=== PATIENT | female | born 1990 | race Caucasian/White ===

== ENCOUNTER → 2016-07-05 | Outpatient (CLI) | payer BC ==
[~2016-07-05] MED LIST: FERR325T3 PO; IBUP80TA PO; PERCOCET PO; PRENTAB13 PO
--- NOTE | 2016-07-05 14:20 | REP ---
Clinical: Anatomical evaluation. Comparison: 05/10/2016 . Findings: Examination demonstrates a single live intrauterine in breech presentation. motion is identified by technologist. Placenta is noted posteriorly and grade zero without evidence for placenta previa or abruption. Amniotic fluid volume is normal. Cervix measures 3.5 cm in length and appears closed. No evidence for nuchal cord. Gestational age by LMP 27 weeks 5 days with LISA 09/29/2016 . Gestational age by current measurements 28 weeks 2 days with LISA 09/25/2016 . FHR equals 147 beats per minute. Estimated weight 1329 grams (77th percentile). Amniotic fluid index equals 13.4 cm (9.4 - 22.7). Anatomical assessment demonstrates normal structures including cranium, facial features, four-chamber heart/ventricular outflow tracts, stomach, kidneys/bladder, and extremities. Impression: Single live intrauterine in cephalic presentation demonstrating appropriate interval growth. In conjunction with prior examination anatomical assessment is complete and normal.
== END ==
LOC: M WHC 12:44
PROVIDERS: ATTEND Advanced Practice Midwife
DX: O34.211 Maternal care for low transverse scar from previous cesarean delivery (principal)

== ENCOUNTER → 2016-08-31 | Outpatient (REF) | payer BC, MEDICAID | LOC: M LAB REF 13:17 | PROVIDERS: ATTEND Advanced Practice Midwife | DX: Z36 Encounter for antenatal screening of mother (principal) ==

== ENCOUNTER 2016-09-21 07:30 | Inpatient (IN) | payer BC ==
[~2016-09-21] VITALS: Ht 154.9 cm; Wt 234.0 kg
[2016-09-28] MEDS ORDERED: LR 1,000 ML IV ONE (06:45)
[2016-09-28] MEDS ORDERED: BICITRA 30ML SOLN UDC PO ONE (06:45)
[2016-09-28] MEDS ORDERED: LR 1,000 ML IV SCH ×2 (07:00→14:00)
[2016-09-28 07:16] LABS: MEAN CORPUSCULAR HEMOGLOBIN 30.2 pg (27.0-33.0); MEAN CORPUSCULAR HGB CONC 33.8 g/dl (32.0-36.5); MEAN CORPUSCULAR VOLUME 89.5 fl (80.0-96.0); RED CELL DISTRIBUTION WIDTH 14.1 % (11.5-14.5); WHITE BLOOD COUNT 16.4 K/mm3 (4.0-10.0)
[2016-09-28] MEDS: PRENATAL VITAMIN TAB PO SCH (09:00)
[2016-09-28] MEDS ORDERED: MORPHINE PRES-FREE INJ 10 MG/10 ML VIAL (J2274) As Ordered ONE (11:27)
[2016-09-28] MEDS ORDERED: OXYTOCIN INJ 10 UNITS/ML VIAL (J2590) As Ordered ONE (11:28)
[2016-09-28] MEDS ORDERED: IBUP800T23 PO (11:55)
[2016-09-28] MEDS ORDERED: PERCOCET PO (11:56)
[2016-09-28] MEDS ORDERED: SUCCINYLCHOLINE 100 MG/5 ML SYRINGE (J0330) As Ordered ONE (12:50)
[2016-09-28] MEDS ORDERED: LIDOCAINE 2% INJ 100 MG/5 ML SDV (FOR ANES.) As Ordered ONE (12:50)
[2016-09-28] MEDS ORDERED: PROPOFOL 200 MG/20 ML VIAL As Ordered ONE (12:50)
[2016-09-28] MEDS ORDERED: KETOROLAC 60 MG/2 ML VIAL (J1885) As Ordered ONE (12:57)
[2016-09-28] MEDS ORDERED: fentaNYL 100 MCG/2 ML INJECTION (J3010) As Ordered ONE (13:10)
[2016-09-28] MEDS: LR 1,000 ML IV SCH ×2 (13:16→21:16)
[2016-09-28] MEDS ORDERED: NS 1,000 ML IV SCH (13:16)
[2016-09-28] MEDS ORDERED: PERCOCET 5MG/325MG TAB PO PRN ×2 (13:30→14:00)
[2016-09-28] MEDS ORDERED: RHOGAM 300 MCG (1500 IU) INJ (J2790) IM SCH (13:30)
[2016-09-28] MEDS ORDERED: NALOXONE INJ 0.4 MG/1 ML VIAL (J2310) IV PRN (13:30)
[2016-09-28] MEDS ORDERED: MEASLES,MUMPS,RUBELLA VACCINE INJ (MMR-II) (90707) SC SCH (13:30)
[2016-09-28] MEDS ORDERED: MORPHINE PCA 1MG/ML 100ML CADD IV PRN (13:30)
[2016-09-28] MEDS ORDERED: NALBUPHINE HCL 10 MG/ML AMP (J2300) IV PRN (13:30)
[2016-09-28] MEDS ORDERED: EPIDURAL/PCA KEYS XX PRN (13:30)
[2016-09-28] MEDS ORDERED: ONDANSETRON 4MG/2ML VIAL (J2405) IV PRN ×2 (13:30→14:00)
[2016-09-28] MEDS ORDERED: diphenhydrAMINE INJ 50MG/ML VIAL (J1200) IV PRN (13:30)
[2016-09-28] MEDS ORDERED: MOM 30ML SUSPENSION UDC PO PRN (13:30)
[2016-09-28] MEDS ORDERED: MORPHINE PCA 1MG/ML 100ML CADD As Ordered ONE (13:42)
[2016-09-28] MEDS: OXYTOCIN DRIP 30 UNITS in APPROPRIATE DILUENT 1 EA IV SCH ×14 (13:47→19:59)
--- NOTE | 2016-09-28 13:48 | RO ---
DATE OF PROCEDURE: 09/28/2016 PREPROCEDURE DIAGNOSIS: Intrauterine at 39 plus weeks with history of a prior section. POSTPROCEDURE DIAGNOSIS: Intrauterine at 39 plus weeks with history of a prior section. PROCEDURE: Repeat section. SURGEON: Dr. Jessica Mares WEIGHT CALCULATOR: Chen Tripathi CNM ANESTHESIA: General secondary to inadequate spinal. ESTIMATED BLOOD LOSS: 600 mL. INTRAVENOUS FLUIDS: 1400 mL of lactated ringer solution. URINE OUTPUT: 100 mL. PREOPERATIVE ANTIBIOTICS: 2 grams of Ancef. OPERATIVE FINDINGS: Live born female infant, scores 9 and 9. SPECIMENS: Cord blood. DESCRIPTION OF PROCEDURE: After informed consent was obtained and written content was reviewed, the patient was brought to the operating room where an attempt for spinal anesthesia was initiated. Unable to obtain an adequate spinal anesthesia, decision was made to proceed with general endotracheal anesthesia. The patient was prepped and draped in a normal sterile fashion. A Jenkins catheter was placed and set to gravity. A time out in the operating room was then performed, identifying patient and procedure to be performed, as well as drug allergies. The patient was then intubated. A Pfannenstiel skin incision was then made along the previous skin incision and carried down to the underlying rectus fascia. The fascia was scored and this incision was extended bilaterally. The fascia was then dissected off the underlying rectus muscles both superiorly and inferiorly. The rectus muscles were then in the midline. The peritoneum was then entered sharply. The vesicouterine peritoneum was identified. It was tented and excised to create a bladder flap. A bladder blade was placed to retract back the bladder. A curvilinear incision was made in the lower uterine segment. Amniotomy was then performed productive of clear fluid. The head was brought to the level of the incision and was delivered with the aid of a Kiwi vacuum atraumatically, followed by delivery of the shoulders and corpus. The cord was clamped times two and was cut. The infant was taken over to the warmer with a good cry. The placenta was then delivered grossly intact. The uterus was then exteriorized and cleared of all clots and debris. The uterine incision was then closed in two layers using #0 Vicryl for the first layer in a running locking fashion, followed by a second layer for imbrication in a running nonlocking fashion. The abdomen was then suctioned. The uterus was returned to the patient's abdomen. It was reinspected and noted to be hemostatic. The anterior peritoneum along with the rectus muscles were then closed with #3-0 Vicryl. The fascia was then closed using #0 Vicryl in a running nonlocking fashion. The subcutaneous tissue was then irrigated and suctioned. The subcutaneous tissue was then reapproximated with #3-0 Vicryl. Several subdermal stitches were placed with #3-0 Vicryl. The skin was closed with #4-0 Monocryl in a subcuticular fashion. The incision was then cleaned and dried. Mastisol was applied above and below the incision. Steri-Strips were applied over the incision. The incision was then dressed. The patient was then awakened from general anesthesia and was taken to recovery in stable condition.
[2016-09-28] MEDS ORDERED: MORPHINE 10 MG/ML 1ML VIAL As Ordered ONE (13:51)
[2016-09-28] MEDS: MORPHINE 2 MG/ML 1ML SYRINGE IV PRN ×4 (13:54→14:35)
[2016-09-28] MEDS ORDERED: fentaNYL 100 MCG/2 ML INJECTION (J3010) IV PRN (14:00)
[2016-09-28] MEDS ORDERED: METOCLOPRAMIDE INJ 10MG/2ML VIAL (J2765) IV PRN (14:00)
[2016-09-28] MEDS ORDERED: OXYTOCIN 30 UNITS IN 0.9% NaCl 500ML IV BAG (J2590) As Ordered ONE (14:24)
[2016-09-28 15:00] VITALS: BP 131/68
[2016-09-28 15:30] VITALS: BP 132/71
[2016-09-28 16:30] VITALS: BP 126/56
[2016-09-28 17:30] VITALS: BP 139/63
[2016-09-28] MEDS: KETOROLAC 30 MG/ML VIAL (J1885) IV SCH (19:47)
[2016-09-28 22:31] VITALS: BP 131/59
[2016-09-29] MEDS: KETOROLAC 30 MG/ML VIAL (J1885) IV SCH ×3 (01:35→12:54)
[2016-09-29 02:00] VITALS: BP 118/60
[2016-09-29] MEDS: LR 1,000 ML IV SCH ×3 (06:10→21:16)
[2016-09-29 06:21] VITALS: BP 127/58
[2016-09-29 07:01] LABS: MEAN CORPUSCULAR HEMOGLOBIN 29.8 pg (27.0-33.0); MEAN CORPUSCULAR HGB CONC 32.5 g/dl (32.0-36.5); MEAN CORPUSCULAR VOLUME 91.7 fl (80.0-96.0); RED CELL DISTRIBUTION WIDTH 14.3 % (11.5-14.5); WHITE BLOOD COUNT 14.4 K/mm3 (4.0-10.0)
[2016-09-29 09:57] VITALS: BP 112/56
[2016-09-29] MEDS: PRENATAL VITAMIN TAB PO SCH (11:09)
[2016-09-29 14:00] VITALS: BP 137/82
[2016-09-29] MEDS: PERCOCET 5MG/325MG TAB PO PRN ×2 (15:57→21:49)
[2016-09-29 17:39] VITALS: BP 124/56
[2016-09-29] MEDS: IBUPROFEN 800 MG TAB PO SCH (21:50)
[2016-09-29 22:00] VITALS: BP 118/56
[2016-09-30] MEDS: PERCOCET 5MG/325MG TAB PO PRN (04:35)
[2016-09-30] MEDS: IBUPROFEN 800 MG TAB PO SCH (05:12)
[2016-09-30 06:42] VITALS: BP 112/51
[2016-09-30] MEDS: PRENATAL VITAMIN TAB PO SCH (08:08)
--- NOTE | 2016-09-30 08:35 | DSES ---
DATE OF ADMISSION: 09/28/2016 DATE OF DISCHARGE: DISCHARGE DIAGNOSIS: Repeat section. DISCHARGE CONDITION: Stable. PROCEDURES PERFORMED WHILE IN THE HOSPITAL: 1. General anesthesia. 2. section. HOSPITAL COURSE: Ms. Love presented for scheduled section secondary to history of prior section. Her section was uncomplicated. Estimated blood loss was 600 mL. Delivery was productive of a live born female infant. were 9 and 9. She did well postoperative. By postoperative day #2, had met all discharge criteria and was discharged home in stable condition. PHYSICAL EXAMINATION: On date of discharge, her vital signs are stable. She is afebrile. General appearance: Well appearing, no acute distress. Abdomen: Soft, appropriately tender. Fundus below umbilicus. Her incision was clean, dry, intact, well approximated with Steri-Strips, non-erythremic. Extremities: Negative for calf tenderness. DISCHARGE MEDICATIONS: - ibuprofen - Percocet DISCHARGE INSTRUCTIONS: 1. She was instructed to followup in 2 weeks for incision check. 2. Remain on pelvic rest. 3. Report severe pain, heavy vaginal bleeding, fever, incision issues or breast feeding issues. GRAY
== END 2016-09-30 11:01 | disposition home or self-care (01) | DRG 540 ==
LOC: M LDI 09-28 06:24 → M OBS 09-28 15:05
PROVIDERS: ADMIT Specialist; ATTEND Obstetrics & Gynecology
PROC: 10D00Z1 Extraction of Products of Conception, Low, Open Approach (ICD-10-PCS; principal; 2016-09-28 07:30)
DX: O34.211 Maternal care for low transverse scar from previous cesarean delivery (principal); Z37.0 Single live birth; Z3A.39 39 weeks gestation of pregnancy

== ENCOUNTER → 2017-10-13 | Outpatient (REF) | payer BC, OTHER ==
[2017-10-13 17:01] LABS: BASO # 0.1 10^3/uL (0.0-0.2); BASO % 0.6 % (0.0-1.0); EOS # 0.2 10^3/uL (0.0-0.50); HEMATOCRIT 41.4 % (36.0-47.0); HEMOGLOBIN 12.9 g/dl (12.0-15.5); IMMATURE GRANULOCYTE % 0.3 % (0-3.0); LYMPH % 28.2 % (24.0-44.0); MEAN CORPUSCULAR HEMOGLOBIN 28.5 pg (27.0-33.0); MEAN CORPUSCULAR HGB CONC 31.2 g/dl (32.0-36.5); MEAN CORPUSCULAR VOLUME 91.6 fl (80.0-96.0); MONO # 0.7 10^3/uL (0.0-0.8); MONO % 6.7 % (0.0-5.0); NEUTROPHILS # 6.7 10^3/uL (1.8-7.7); NEUTROPHILS % 62.2 % (36.0-66.0); PLATELET COUNT, AUTOMATED 330 10^3/uL (150-450); RED BLOOD COUNT 4.52 10^6/uL (4.00-5.40); RED CELL DISTRIBUTION WIDTH 13.5 % (11.5-14.5); WHITE BLOOD COUNT 10.7 10^3/uL (4.0-10.0)
[2017-10-13 17:14] LABS: ALBUMIN 3.8 GM/DL (3.2-5.2); ALBUMIN/GLOBULIN RATIO 1.12 (1.00-1.93); ALKALINE PHOSPHATASE 128 U/L (45-117); ALT/SGPT 30 U/L (12-78); ANION GAP 6 MEQ/L (8-16); AST/SGOT 22 U/L (7-37); BILIRUBIN,TOTAL 0.4 MG/DL (0.2-1.0); BLOOD UREA NITROGEN 9 MG/DL (7-18); CALCIUM LEVEL 8.4 MG/DL (8.5-10.1); CARBON DIOXIDE LEVEL 27 MEQ/L (21-32); CHLORIDE LEVEL 110 MEQ/L (98-107); CHOLESTEROL LEVEL 135 MG/DL (<200); CHOLESTEROL RISK RATIO 3.214 (<5); CREATININE FOR GFR 0.74 MG/DL (0.55-1.30); FREE T4 1.03 NG/DL (0.76-1.46); GLOMERULAR FILTRATION RATE > 60.0 (>60); GLUCOSE, FASTING 82 MG/DL (70-100); HDL CHOLESTEROL 42 MG/DL (>40); LDL CHOLESTEROL 75.6 MG/DL (<100); NON-HDL-C 93 MG/DL; POTASSIUM SERUM 4.3 MEQ/L (3.5-5.1); SODIUM LEVEL 143 MEQ/L (136-145); TOTAL PROTEIN 7.2 GM/DL (6.4-8.2); TRIGLYCERIDES LEVEL 87 MG/DL (<150)
[2017-10-15 11:16] LABS: TOTAL 25(OH) VITAMIN D 11.8 NG/ML (30.0-100.0)
== END ==
LOC: M SFHCSACK 08:56
DX: M79.7 Fibromyalgia (principal); Z13.220 Encounter for screening for lipoid disorders; Z13.29 Encounter for screening for other suspected endocrine disorder; Z13.21 Encounter for screening for nutritional disorder
CPT/HCPCS: 84443

== ENCOUNTER → 2017-12-15 | Outpatient (CLI) | payer BC, OTHER ==
[2017-12-15 17:18] LABS: GAMMA GLUTAMYLTRANSPEPTIDASE 30 U/L (5-55)
== END ==
LOC: M LABDRWAD 10:33
DX: K58.1 Irritable bowel syndrome with constipation (principal)

== ENCOUNTER → 2018-02-14 | Outpatient (CLI) | payer BC, OTHER | LOC: M ADAMS 15:58 | DX: M25.571 Pain in right ankle and joints of right foot (principal) | CPT/HCPCS: 73610 ==

== ENCOUNTER → 2018-03-16 | Outpatient (CLI) | payer BC, OTHER ==
[2018-03-16 14:00] LABS: ALBUMIN 3.6 GM/DL (3.2-5.2); ALBUMIN/GLOBULIN RATIO 1.06 (1.00-1.93); ALKALINE PHOSPHATASE 119 U/L (45-117); ALT/SGPT 32 U/L (12-78); ANION GAP 6 MEQ/L (8-16); AST/SGOT 22 U/L (7-37); BILIRUBIN,TOTAL 0.4 MG/DL (0.2-1.0); BLOOD UREA NITROGEN 11 MG/DL (7-18); CALCIUM LEVEL 8.4 MG/DL (8.5-10.1); CARBON DIOXIDE LEVEL 26 MEQ/L (21-32); CHLORIDE LEVEL 111 MEQ/L (98-107); GLOMERULAR FILTRATION RATE > 60.0 (>60); GLUCOSE, FASTING 80 MG/DL (70-100); POTASSIUM SERUM 3.9 MEQ/L (3.5-5.1); SODIUM LEVEL 143 MEQ/L (136-145)
[2018-03-16 14:06] LABS: BASO # 0.1 10^3/uL (0.0-0.2); BASO % 0.6 % (0.0-1.0); EOS # 0.4 10^3/uL (0.0-0.50); EOS % 3.6 % (0.0-3.0); HEMATOCRIT 40.1 % (36.0-47.0); HEMOGLOBIN 12.7 g/dl (12.0-15.5); IMMATURE GRANULOCYTE % 0.5 % (0-3.0); LYMPH # 3.5 10^3/uL (1.5-6.5); LYMPH % 31.7 % (24.0-44.0); MEAN CORPUSCULAR HEMOGLOBIN 28.5 pg (27.0-33.0); MEAN CORPUSCULAR HGB CONC 31.7 g/dl (32.0-36.5); MEAN CORPUSCULAR VOLUME 89.9 fl (80.0-96.0); MONO # 0.9 10^3/uL (0.0-0.8); MONO % 8.3 % (0.0-5.0); NEUTROPHILS # 6.1 10^3/uL (1.8-7.7); NEUTROPHILS % 55.3 % (36.0-66.0); PLATELET COUNT, AUTOMATED 324 10^3/uL (150-450); RED BLOOD COUNT 4.46 10^6/uL (4.00-5.40); RED CELL DISTRIBUTION WIDTH 12.8 % (11.5-14.5); WHITE BLOOD COUNT 10.9 10^3/uL (4.0-10.0)
[2018-03-18 11:02] LABS: TOTAL 25(OH) VITAMIN D 58.1 NG/ML (30.0-100.0)
== END ==
LOC: M ADAMS 09:51
DX: M35.9 Systemic involvement of connective tissue, unspecified (principal); R74.8 Abnormal levels of other serum enzymes; E55.9 Vitamin D deficiency, unspecified
CPT/HCPCS: 80053

== ENCOUNTER → 2018-03-22 | Outpatient (CLI) | payer BC ==
[~2018-03-22] MED LIST changes: -FERR325T3 PO; -IBUP80TA PO; -PERCOCET PO; -PRENTAB13 PO; +PROHANCE 279.3MG/ML 15ML VIAL (A9576) As Ordered; +PROHANCE 279.3MG/ML 5ML VIAL (A9576) As Ordered
== END ==
LOC: M RAD 11:57
DX: R22.41 Localized swelling, mass and lump, right lower limb (principal)

== ENCOUNTER → 2018-05-27 | Outpatient (REF) | payer BC ==
[2018-05-27 16:13] LABS: APPEARANCE, URINE HAZY (CLEAR); BACTERIA, URINE AUTO NEGATIVE (NEGATIVE); BILIRUBIN, URINE AUTO NEGATIVE (NEGATIVE); BLOOD, URINE BLOOD NEGATIVE (NEGATIVE); CALCIUM OXALATE CRYSTALS SMALL; COLOR, URINE YELLOW (YELLOW); GLUCOSE, URINE (UA) AUTO NEGATIVE (NEGATIVE); KETONE, URINE AUTO NEGATIVE (NEGATIVE); LEUKOCYTE ESTERASE, URINE AUTO NEGATIVE (NEGATIVE); MUCUS, URINE SMALL (NEGATIVE); NITRITE, URINE AUTO NEGATIVE (NEGATIVE); PROTEIN, URINE AUTO NEGATIVE (NEGATIVE); RBC, URINE AUTO 4 /HPF (0-3); SPECIFIC GRAVITY URINE AUTO 1.026 (1.002-1.035); SQUAMOUS EPITHELIAL CELL UR AU 5 /HPF (0-6); WBC, URINE AUTO 1 /HPF (0-3)
[2018-05-27 16:14] LABS: BASO # 0.1 10^3/uL (0.0-0.2); BASO % 0.5 % (0.0-1.0); EOS # 0.2 10^3/uL (0.0-0.50); EOS % 1.4 % (0.0-3.0); HEMATOCRIT 43.2 % (36.0-47.0); HEMOGLOBIN 13.5 g/dl (12.0-15.5); IMMATURE GRANULOCYTE % 0.3 % (0-3.0); LYMPH # 3.8 10^3/uL (1.5-4.5); LYMPH % 28.4 % (24.0-44.0); MEAN CORPUSCULAR HGB CONC 31.3 g/dl (32.0-36.5); MEAN CORPUSCULAR VOLUME 89.4 fl (80.0-96.0); MONO # 0.8 10^3/uL (0.0-0.8); MONO % 6.2 % (0.0-5.0); NEUTROPHILS # 8.4 10^3/uL (1.8-7.7); NEUTROPHILS % 63.2 % (36.0-66.0); PLATELET COUNT, AUTOMATED 323 10^3/uL (150-450); RED BLOOD COUNT 4.83 10^6/uL (4.00-5.40); RED CELL DISTRIBUTION WIDTH 12.5 % (11.5-14.5); WHITE BLOOD COUNT 13.3 10^3/uL (4.0-10.0)
[2018-05-27 16:36] LABS: TOTAL PROTEIN,RANDOM URINE 16.1 MG/DL (0.0-12.0)
[2018-05-27 16:37] LABS: ALBUMIN/GLOBULIN RATIO 1.18 (1.00-1.93); ALKALINE PHOSPHATASE 129 U/L (45-117); ALT/SGPT 36 U/L (12-78); ANION GAP 5 MEQ/L (8-16); AST/SGOT 21 U/L (7-37); BILIRUBIN,TOTAL 0.2 MG/DL (0.2-1.0); BLOOD UREA NITROGEN 12 MG/DL (7-18); C REACTIVE PROTEIN QUANTITATIV 0.93 MG/DL (0.00-0.30); CALCIUM LEVEL 8.7 MG/DL (8.5-10.1); CARBON DIOXIDE LEVEL 29 MEQ/L (21-32); CHLORIDE LEVEL 109 MEQ/L (98-107); COMPLEMENT C3 128 MG/DL (90-180); COMPLEMENT C4 31 MG/DL (10-40); CREATININE FOR GFR 0.74 MG/DL (0.55-1.30); GLOMERULAR FILTRATION RATE > 60.0 (>60); GLUCOSE, FASTING 73 MG/DL (70-100); POTASSIUM SERUM 3.8 MEQ/L (3.5-5.1); SODIUM LEVEL 143 MEQ/L (136-145); TOTAL PROTEIN 7.4 GM/DL (6.4-8.2)
[2018-05-27 19:44] LABS: ERYTHROCYTE SEDIMENTATION RATE 24 mm/hr (0-20)
[2018-05-28 09:52] LABS: DRVV SCREEN 43.7 SEC
[2018-05-28 09:53] LABS: PTT LUPUS TYPE ANTICOAG SCREEN 1.1 (0-1.2)
[2018-05-31 00:29] LABS: ANA (HEP2) Negative (.); ANTI DOUBLE STRAND-DNA AB <1 IU/mL (0-9); BETA-2 GLYCOPROTEIN I ABY IGA <9 (0-25); BETA-2 GLYCOPROTEIN I ABY IGG <9 (0-20); BETA-2 GLYCOPROTEIN I ABY IGM <9 (0-32); CARDIOLIPIN IGA ANTIBODY <9 APL U/mL (0-11); CARDIOLIPIN IGG ANTIBODY <9 GPL U/mL (0-14); CARDIOLIPIN IGM ANTIBODY 12 MPL U/mL (0-12); RNP ANTIBODY 0.4 AI (0.0-0.9); SMITHS ANTIBODY < 0.2 AI (0.0-0.9); SSA SJOGRENS A <0.2 AI (0.0-0.9); SSB SJOGRENS B <0.2 AI (0.0-0.9)
== END ==
LOC: M SFHCPLAZ 13:55
DX: M35.9 Systemic involvement of connective tissue, unspecified (principal)
CPT/HCPCS: 80053

== ENCOUNTER → 2018-09-25 | Outpatient (REF) | payer BC ==
[~2018-09-25] MED LIST changes: +FERR325T3 PO; +IBUP1TAB7 PO; +IBUP80TA PO; +PERCOCET PO; +PRENTAB20 PO; -PROHANCE 279.3MG/ML 15ML VIAL (A9576) As Ordered; -PROHANCE 279.3MG/ML 5ML VIAL (A9576) As Ordered
[2018-09-25 19:34] LABS: TOTAL PROTEIN 7.1 GM/DL (6.4-8.2)
[2018-09-26 13:30] LABS: ALBUMIN % 56.7 % (55.8-66.1); ALPHA-1-GLOBULIN % 4.6 % (2.9-4.9); ALPHA-2-GLOBULINS % 10.6 % (7.1-11.8)
[2018-09-26 13:31] LABS: ALBUMIN 4.03 GM/DL (3.29-5.55); ALPHA-1-GLOBULINS 0.33 GM/DL (0.17-0.41); ALPHA-2-GLOBULINS 0.75 GM/DL (0.42-0.99); BETA-1-GLOBULINS % 7.1 % (4.7-7.2); BETA-2-GLOBULINS 0.35 GM/DL (0.19-0.55); BETA-2-GLOBULINS % 4.9 % (3.2-6.5); GAMMA GLOBULIN % 16.1 % (11.1-18.8); GAMMA GLOBULINS 1.14 GM/DL (0.65-1.58)
== END ==
LOC: M LABDRAW1 19:04
PROVIDERS: ATTEND Internal Medicine Rheumatology
DX: D72.829 Elevated white blood cell count, unspecified (principal)

== ENCOUNTER → 2018-11-21 | Outpatient (CLI) | payer BC ==
[~2018-11-21] MED LIST changes: +LINZ290C PO; +SLOW160T12 PO; +VITA500045 PO; +VITA50TA7 PO
--- NOTE | 2018-11-21 18:07 | REP ---
Clinical: Right lower extremity/calf pain . Technique: Pedro scale and color Doppler evaluation using linear high frequency transducer. Findings: Ultrasound examination of the right lower extremity deep venous structures from the common femoral vein to the popliteal vein demonstrates normal compressibility flow and wave patterns in response to respiration and augmentation. There is no evidence for deep venous thrombosis. Impression: No evidence for deep venous thrombosis. Electronically Signed by John Scruggs MD 11/21/2018 05:58 P
== END ==
LOC: M RAD 16:58
PROVIDERS: ATTEND Internal Medicine Hematology & Oncology
DX: M79.661 Pain in right lower leg (principal); E53.1 Pyridoxine deficiency

== ENCOUNTER → 2019-01-17 | Outpatient (CLI) | payer BC ==
[2019-01-17 08:07] LABS: BASO # 0.1 10^3/uL (0.0-0.2); BASO % 0.4 % (0.0-1.0); EOS # 0.2 10^3/uL (0.0-0.50); EOS % 1.9 % (0.0-3.0); HEMATOCRIT 40.4 % (36.0-47.0); HEMOGLOBIN 13.2 g/dl (12.0-15.5); LYMPH # 2.6 10^3/uL (1.5-4.5); LYMPH % 21.7 % (24.0-44.0); MEAN CORPUSCULAR HEMOGLOBIN 28.3 pg (27.0-33.0); MEAN CORPUSCULAR HGB CONC 32.7 g/dl (32.0-36.5); MEAN CORPUSCULAR VOLUME 86.5 fl (80.0-96.0); MONO # 0.8 10^3/uL (0.0-0.8); MONO % 6.8 % (0.0-5.0); NEUTROPHILS # 8.3 10^3/uL (1.8-7.7); NEUTROPHILS % 68.9 % (36.0-66.0); PLATELET COUNT, AUTOMATED 331 10^3/uL (150-450); RED BLOOD COUNT 4.67 10^6/uL (4.00-5.40); WHITE BLOOD COUNT 12.1 10^3/uL (4.0-10.0)
== END ==
LOC: M LAB 06:46
PROVIDERS: ATTEND Internal Medicine Hematology & Oncology
DX: M79.661 Pain in right lower leg (principal)

== ENCOUNTER → 2019-02-02 | Outpatient (CLI) | payer BC | LOC: M ADAMS 09:02 | PROVIDERS: ATTEND Physician Assistant | DX: D72.829 Elevated white blood cell count, unspecified (principal); E55.9 Vitamin D deficiency, unspecified ==

== ENCOUNTER → 2019-02-02 | Outpatient (REF) | payer BC ==
[2019-02-02 16:31] LABS: BASO # 0.1 10^3/uL (0.0-0.2); BASO % 0.4 % (0.0-1.0); EOS # 0.4 10^3/uL (0.0-0.50); EOS % 3.1 % (0.0-3.0); HEMATOCRIT 41.9 % (36.0-47.0); HEMOGLOBIN 13.4 g/dl (12.0-15.5); LYMPH # 2.9 10^3/uL (1.5-4.5); LYMPH % 26.1 % (24.0-44.0); MEAN CORPUSCULAR HEMOGLOBIN 28.5 pg (27.0-33.0); MONO # 0.7 10^3/uL (0.0-0.8); MONO % 6.4 % (0.0-5.0); NEUTROPHILS # 7.1 10^3/uL (1.8-7.7); NEUTROPHILS % 63.6 % (36.0-66.0); PLATELET COUNT, AUTOMATED 347 10^3/uL (150-450); RED BLOOD COUNT 4.71 10^6/uL (4.00-5.40); WHITE BLOOD COUNT 11.2 10^3/uL (4.0-10.0)
[2019-02-02 16:42] LABS: ALBUMIN 3.8 GM/DL (3.2-5.2); ALT/SGPT 28 U/L (12-78); BILIRUBIN,TOTAL 0.5 MG/DL (0.2-1.0); BLOOD UREA NITROGEN 10 MG/DL (7-18); CALCIUM LEVEL 8.8 MG/DL (8.5-10.1); CARBON DIOXIDE LEVEL 29 MEQ/L (21-32); CHLORIDE LEVEL 111 MEQ/L (98-107); GLOMERULAR FILTRATION RATE > 60.0 (>60); GLUCOSE, FASTING 88 MG/DL (70-100); POTASSIUM SERUM 4.2 MEQ/L (3.5-5.1); SODIUM LEVEL 143 MEQ/L (136-145); TOTAL PROTEIN 7.2 GM/DL (6.4-8.2)
[2019-02-03 10:50] LABS: TOTAL 25(OH) VITAMIN D 28.9 NG/ML (30.0-100.0)
== END ==
LOC: M SFHCADAM 09:00
PROVIDERS: ATTEND Physician Assistant
DX: D72.829 Elevated white blood cell count, unspecified (principal); E55.9 Vitamin D deficiency, unspecified

== ENCOUNTER → 2019-04-07 | Outpatient (REF) | payer BC ==
[2019-04-10 08:07] LABS: HPV HYBRID CAPTURE II Negative (Negative)
== END ==
LOC: M LAB REF 16:51
PROVIDERS: ATTEND Specialist
DX: Z12.4 Encounter for screening for malignant neoplasm of cervix (principal); B37.3 Candidiasis of vulva and vagina
CPT/HCPCS: 87624; G0123

== ENCOUNTER → 2020-03-21 | Outpatient (CLI) | payer BC ==
[2020-03-21 12:39] LABS: BASO % 0.3 % (0.0-1.0); EOS # 0.3 10^3/uL (0.0-0.5); EOS % 3.3 % (0.0-3.0); HEMATOCRIT 39.5 % (36.0-47.0); HEMOGLOBIN 12.5 g/dl (12.0-15.5); LYMPH # 2.8 10^3/uL (1.5-5.0); LYMPH % 29.3 % (24.0-44.0); MEAN CORPUSCULAR HEMOGLOBIN 28.8 pg (27.0-33.0); MEAN CORPUSCULAR HGB CONC 31.6 g/dl (32.0-36.5); MONO # 0.6 10^3/uL (0.0-0.8); MONO % 6.1 % (0.0-5.0); NEUTROPHILS # 5.8 10^3/uL (1.5-8.5); NEUTROPHILS % 60.7 % (36.0-66.0); PLATELET COUNT, AUTOMATED 290 10^3/uL (150-450); RED BLOOD COUNT 4.34 10^6/uL (4.00-5.40); WHITE BLOOD COUNT 9.6 10^3/uL (4.0-10.0)
[2020-03-21 12:53] LABS: ALBUMIN 3.5 GM/DL (3.2-5.2); ALT/SGPT 20 U/L (12-78); BILIRUBIN,TOTAL 0.4 MG/DL (0.2-1.0); BLOOD UREA NITROGEN 11 MG/DL (7-18); CALCIUM LEVEL 8.7 MG/DL (8.5-10.1); CARBON DIOXIDE LEVEL 28 MEQ/L (21-32); CHLORIDE LEVEL 109 MEQ/L (98-107); CREATININE FOR GFR 0.78 MG/DL (0.55-1.30); FREE T4 1.09 NG/DL (0.76-1.46); GLOMERULAR FILTRATION RATE > 60.0 (>60); GLUCOSE, FASTING 81 MG/DL (70-100); POTASSIUM SERUM 4.2 MEQ/L (3.5-5.1); SODIUM LEVEL 141 MEQ/L (136-145); TOTAL PROTEIN 6.6 GM/DL (6.4-8.2)
[2020-03-21 14:03] LABS: HEMOGLOBIN A1c 5.2 %
== END ==
LOC: M WUC 08:04
PROVIDERS: ATTEND Physician Assistant
DX: K58.1 Irritable bowel syndrome with constipation (principal); E66.8 Other obesity

== ENCOUNTER → 2020-07-01 | Outpatient (CLI) | payer BC ==
--- NOTE | 2020-07-01 12:44 | REPPI ---
INDICATION: SWELLIN COMPARISON: None. TECHNIQUE: AP, lateral, bilateral oblique views right and left hand. FINDINGS: The osseous structures, joint spaces, and surrounding soft tissues are relatively symmetric and age-appropriate. No overt osteoarthritic or inflammatory arthritic changes are appreciated. No evidence for acute or healed injury to either hand. IMPRESSION: Symmetric age-appropriate bilateral hand radiograph series. No overt osteoarthritic or inflammatory arthritic changes appreciated. <Electronically signed by John Scruggs > 07/01/20 [id number]
--- NOTE | 2020-07-01 12:47 | REPPI ---
INDICATION: SWELLING COMPARISON: None. TECHNIQUE: Four views bilateral ankles performed. FINDINGS: There is no evidence of acute fracture, dislocation, or intrinsic bone disease.There is mild posterior calcaneal spurring on the right as well as on the left. There is also a moderate-sized spur of the inferior left calcaneus. The ankle mortise is anatomic bilaterally. IMPRESSION: No fracture or dislocation. Calcaneal spurring bilaterally. <Electronically signed by Paul Pedro > 07/01/20 [id number]
== END ==
LOC: M PLAIMG 08:53
PROVIDERS: ATTEND Internal Medicine
DX: M25.40 Effusion, unspecified joint (principal); R76.8 Other specified abnormal immunological findings in serum; Z79.899 Other long term (current) drug therapy; M77.32 Calcaneal spur, left foot

== ENCOUNTER → 2020-07-01 | Outpatient (REF) | payer BC ==
[2020-07-01 11:25] LABS: APPEARANCE, URINE HAZY (CLEAR); BACTERIA, URINE AUTO NEGATIVE (NEGATIVE); BASO # 0.1 10^3/uL (0.0-0.2); BASO % 0.6 % (0.0-1.0); BILIRUBIN, URINE AUTO NEGATIVE (NEGATIVE); BLOOD, URINE BLOOD NEGATIVE (NEGATIVE); COLOR, URINE YELLOW (YELLOW); EOS # 0.1 10^3/uL (0.0-0.5); EOS % 1.5 % (0.0-3.0); GLUCOSE, URINE (UA) AUTO NEGATIVE (NEGATIVE); HEMATOCRIT 43.3 % (36.0-47.0); HEMOGLOBIN 13.8 g/dl (12.0-15.5); KETONE, URINE AUTO NEGATIVE (NEGATIVE); LEUKOCYTE ESTERASE, URINE AUTO NEGATIVE (NEGATIVE); LYMPH # 2.6 10^3/uL (1.5-5.0); LYMPH % 28.2 % (24.0-44.0); MEAN CORPUSCULAR HEMOGLOBIN 29.8 pg (27.0-33.0); MEAN CORPUSCULAR HGB CONC 31.9 g/dl (32.0-36.5); MEAN CORPUSCULAR VOLUME 93.5 fl (80.0-96.0); MONO # 0.6 10^3/uL (0.0-0.8); MONO % 6.3 % (0.0-5.0); MUCUS, URINE SMALL (NEGATIVE); NEUTROPHILS # 5.9 10^3/uL (1.5-8.5); NEUTROPHILS % 63.1 % (36.0-66.0); NITRITE, URINE AUTO NEGATIVE (NEGATIVE); PLATELET COUNT, AUTOMATED 307 10^3/uL (150-450); PROTEIN, URINE AUTO NEGATIVE (NEGATIVE); RBC, URINE AUTO 7 /HPF (0-3); RED BLOOD COUNT 4.63 10^6/uL (4.00-5.40); SPECIFIC GRAVITY URINE AUTO 1.011 (1.002-1.035); SQUAMOUS EPITHELIAL CELL UR AU 4 /HPF (0-6); UROBILINOGEN, URINE AUTO 0.2 mg/dL (0.0-2.0); WBC, URINE AUTO 1 /HPF (0-3); WHITE BLOOD COUNT 9.3 10^3/uL (4.0-10.0)
[2020-07-01 11:40] LABS: ERYTHROCYTE SEDIMENTATION RATE 18 mm/hr (0-20)
[2020-07-01 11:59] LABS: ALT/SGPT 36 U/L (12-78); BILIRUBIN,DIRECT 0.1 MG/DL (0.0-0.2); BILIRUBIN,TOTAL 0.5 MG/DL (0.2-1.0); BLOOD UREA NITROGEN 14 MG/DL (7-18); C REACTIVE PROTEIN QUANTITATIV 0.71 MG/DL (0.00-0.30); CARBON DIOXIDE LEVEL 27 MEQ/L (21-32); CHLORIDE LEVEL 109 MEQ/L (98-107); COMPLEMENT C3 122 MG/DL (90-180); COMPLEMENT C4 26 MG/DL (10-40); CREATININE FOR GFR 0.74 MG/DL (0.55-1.30); GLOMERULAR FILTRATION RATE > 60.0 (>60); GLUCOSE, FASTING 89 MG/DL (70-100); POTASSIUM SERUM 4.2 MEQ/L (3.5-5.1); RHEUMATOID FACTOR QUANT < 10.0 IU/ML (<15.0); SODIUM LEVEL 139 MEQ/L (136-145); TOTAL PROTEIN 7.1 GM/DL (6.4-8.2)
[2020-07-02 10:44] LABS: DRVV SCREEN 41.4 SEC
[2020-07-06 13:07] LABS: ANA (HEP2) Negative (.); ANTI CENTROMERE ANTIBODY <0.2 AI (0.0-0.9); ANTI DS-DNA AB Negative (Negative); ANTI SCLERODERMA ANTIBODIES <0.2 AI (0.0-0.9); ANTI-HISTONE ANTIBODIES 0.5 Units (0.0-0.9); BETA-2 GLYCOPROTEIN I ABY IGA <9 (0-25); BETA-2 GLYCOPROTEIN I ABY IGG <9 (0-20); BETA-2 GLYCOPROTEIN I ABY IGM <9 (0-32); CARDIOLIPIN IGA ANTIBODY <9 APL U/mL (0-11); CARDIOLIPIN IGG ANTIBODY <9 GPL U/mL (0-14); CARDIOLIPIN IGM ANTIBODY 27 MPL U/mL (0-12); COMPLEMENT TOTAL (CH50) > 60 U/mL (>41); CYCLIC CITRULLINATED PEPTIDE 6 units (0-19); SSA SJOGRENS A <0.2 AI (0.0-0.9); SSB SJOGRENS B <0.2 AI (0.0-0.9)
== END ==
LOC: M SFHCRHEU 09:01
PROVIDERS: ATTEND Internal Medicine
DX: R76.8 Other specified abnormal immunological findings in serum (principal); M25.40 Effusion, unspecified joint; Z79.899 Other long term (current) drug therapy

== ENCOUNTER → 2020-07-30 | Outpatient (CLI) | payer BC | LOC: M LAB 16:39 | PROVIDERS: ATTEND Internal Medicine | DX: R76.8 Other specified abnormal immunological findings in serum (principal) ==

== ENCOUNTER → 2020-12-16 | Outpatient (CLI) | payer BC ==
[~2020-12-16] MED LIST changes: +PYRI50TA41 PO; -VITA50TA7 PO
[2020-12-16 10:42] LABS: BASO % 0.4 % (0.0-1.0); EOS # 0.2 10^3/uL (0.0-0.5); EOS % 1.9 % (0.0-3.0); HEMATOCRIT 42.1 % (36.0-47.0); HEMOGLOBIN 13.6 g/dl (12.0-15.5); LYMPH # 2.3 10^3/uL (1.5-5.0); LYMPH % 25.5 % (24.0-44.0); MEAN CORPUSCULAR HEMOGLOBIN 29.6 pg (27.0-33.0); MEAN CORPUSCULAR HGB CONC 32.3 g/dl (32.0-36.5); MEAN CORPUSCULAR VOLUME 91.5 fl (80.0-96.0); MONO # 0.7 10^3/uL (0.0-0.8); MONO % 7.8 % (2.0-8.0); NEUTROPHILS # 5.8 10^3/uL (1.5-8.5); NEUTROPHILS % 64.2 % (36.0-66.0); PLATELET COUNT, AUTOMATED 318 10^3/uL (150-450)
[2020-12-16 11:14] LABS: ALBUMIN 3.7 GM/DL (3.2-5.2); BILIRUBIN,DIRECT 0.2 MG/DL (0.0-0.2); BILIRUBIN,TOTAL 0.5 MG/DL (0.2-1.0); C REACTIVE PROTEIN QUANTITATIV 0.92 MG/DL (0.00-0.30); TOTAL PROTEIN 7.2 GM/DL (6.4-8.2)
[2020-12-16 11:21] LABS: ERYTHROCYTE SEDIMENTATION RATE 15 mm/hr (0-20)
== END ==
LOC: M WUC 08:14
PROVIDERS: ATTEND Internal Medicine
DX: M35.9 Systemic involvement of connective tissue, unspecified (principal)

== ENCOUNTER → 2021-01-22 | Outpatient (CLI) | payer BC ==
--- NOTE | 2021-01-24 09:55 | REP ---
INDICATION: CE ANKLE INTERNAL DERANGEMENT. COMPARISON: None. TECHNIQUE: Multiple sequences are obtained in the axial, coronal and sagittal planes. FINDINGS: The Achilles, anterior tibial, posterior tibial, flexor hallucis longus, flexor digitorum longus and peroneal tendons are all intact without significant tenosynovitis. The anterior and posterior talofibular, calcaneofibular and deltoid ligaments appear intact. Plantar tendon appears intact. There is no plantar fasciitis. Sinus tarsi appears unremarkable. No ganglion cyst is seen. There is normal amount of joint fluid. The cartilaginous surfaces are smooth. No osteochondral defect is seen at the tibiotalar joint. There is no bone marrow edema or occult fracture. IMPRESSION: Negative MRI of the ankle. <Electronically signed by Paul Pedro > 01/24/21 [id number]
--- NOTE | 2021-01-24 10:12 | REP ---
INDICATION: CE ANKLE INTERNAL DERANGEMENT. COMPARISON: 03/22/2018. TECHNIQUE: Multiple sequences are obtained in the axial, coronal and sagittal planes. FINDINGS: The Achilles, anterior tibial, posterior tibial, flexor hallucis longus, flexor digitorum longus and peroneal tendons are all intact without significant tenosynovitis. The previously noted edematous signal in the flexor digitorum brevis muscle adjacent to the calcaneus is no longer visualized. The anterior and posterior talofibular, calcaneofibular and deltoid ligaments appear intact. Plantar tendon appears intact. There is no plantar fasciitis. Sinus tarsi appears unremarkable. No ganglion cyst is seen. Mild scattered joint fluid is again seen in the hindfoot. The cartilaginous surfaces are smooth. No osteochondral defect is seen at the tibiotalar joint. There is no bone marrow edema or occult fracture. Previously noted edema in the lateral cuneiform, middle cuneiform, base of 2nd metatarsal and navicular bone have resolved. A subcentimeter cyst is seen in the head of the 1st metatarsal. IMPRESSION: Resolution of previously noted findings as discussed in detail above. No persistent acute abnormality. Mild scattered joint fluid. Subcentimeter cyst in the head of the 1st metatarsal. <Electronically signed by Paul Pedro > 01/24/21 [id number]
== END ==
LOC: M RAD 09:40
PROVIDERS: ATTEND Internal Medicine
DX: M85.471 Solitary bone cyst, right ankle and foot (principal); M24.871 Other specific joint derangements of right ankle, not elsewhere classified; M24.872 Other specific joint derangements of left ankle, not elsewhere classified

== ENCOUNTER → 2021-06-06 | Outpatient (REF) | payer BC ==
[2021-06-06 11:54] LABS: BASO % 0.4 % (0.0-1.0); EOS # 0.2 10^3/uL (0.0-0.5); EOS % 2.3 % (0.0-3.0); HEMATOCRIT 43.5 % (36.0-47.0); LYMPH # 2.5 10^3/uL (1.5-5.0); LYMPH % 25.7 % (24.0-44.0); MEAN CORPUSCULAR HEMOGLOBIN 29.5 pg (27.0-33.0); MEAN CORPUSCULAR HGB CONC 32.2 g/dl (32.0-36.5); MEAN CORPUSCULAR VOLUME 91.8 fl (80.0-96.0); MONO # 0.6 10^3/uL (0.0-0.8); MONO % 5.8 % (2.0-8.0); NEUTROPHILS # 6.4 10^3/uL (1.5-8.5); NEUTROPHILS % 65.5 % (36.0-66.0); PLATELET COUNT, AUTOMATED 284 10^3/uL (150-450); RED BLOOD COUNT 4.74 10^6/uL (4.00-5.40); WHITE BLOOD COUNT 9.7 10^3/uL (4.0-10.0)
[2021-06-06 12:23] LABS: ALBUMIN 3.8 GM/DL (3.2-5.2); ALT/SGPT 26 U/L (12-78); BILIRUBIN,DIRECT 0.1 MG/DL (0.0-0.2); BILIRUBIN,TOTAL 0.4 MG/DL (0.2-1.0); BLOOD UREA NITROGEN 11 MG/DL (7-18); C REACTIVE PROTEIN QUANTITATIV 0.75 MG/DL (0.00-0.30); CALCIUM LEVEL 9.2 MG/DL (8.5-10.1); CARBON DIOXIDE LEVEL 26 MEQ/L (21-32); CHLORIDE LEVEL 109 MEQ/L (98-107); COMPLEMENT C3 136 MG/DL (90-180); COMPLEMENT C4 32 MG/DL (10-40); CREATININE FOR GFR 0.78 MG/DL (0.55-1.30); GLOMERULAR FILTRATION RATE > 60.0 (>60); GLUCOSE, FASTING 94 MG/DL (70-100); POTASSIUM SERUM 4.4 MEQ/L (3.5-5.1); SODIUM LEVEL 141 MEQ/L (136-145); TOTAL PROTEIN 7.4 GM/DL (6.4-8.2)
[2021-06-06 12:26] LABS: ERYTHROCYTE SEDIMENTATION RATE 17 mm/hr (0-20)
[2021-06-06 13:11] LABS: APPEARANCE, URINE HAZY (CLEAR); BACTERIA, URINE AUTO NEGATIVE (NEGATIVE); BILIRUBIN, URINE AUTO NEGATIVE (NEGATIVE); BLOOD, URINE BLOOD NEGATIVE (NEGATIVE); COLOR, URINE YELLOW (YELLOW); GLUCOSE, URINE (UA) AUTO NEGATIVE (NEGATIVE); KETONE, URINE AUTO NEGATIVE (NEGATIVE); LEUKOCYTE ESTERASE, URINE AUTO NEGATIVE (NEGATIVE); MUCUS, URINE SMALL (NEGATIVE); NITRITE, URINE AUTO NEGATIVE (NEGATIVE); PROTEIN, URINE AUTO NEGATIVE (NEGATIVE); RBC, URINE AUTO 2 /HPF (0-3); SQUAMOUS EPITHELIAL CELL UR AU 5 /HPF (0-6); UROBILINOGEN, URINE AUTO 0.2 mg/dL (0.0-2.0); WBC, URINE AUTO 1 /HPF (0-3)
[2021-06-06 16:08] LABS: TOTAL PROTEIN,RANDOM URINE 15.5 MG/DL (0.0-12.0)
== END ==
LOC: M SFHCRHEU 07:07
PROVIDERS: ATTEND Internal Medicine
DX: M06.4 Inflammatory polyarthropathy (principal)

== ENCOUNTER → 2021-07-08 | Outpatient (CLI) | payer BC | LOC: M PLAIMG 15:19 | PROVIDERS: ATTEND Internal Medicine | DX: M70.61 Trochanteric bursitis, right hip (principal) ==

== ENCOUNTER → 2021-09-28 | Outpatient (CLI) | payer BC ==
[2021-09-28 16:45] LABS: BASO # 0.1 10^3/uL (0.0-0.2); BASO % 0.3 % (0.0-1.0); EOS # 0.2 10^3/uL (0.0-0.5); EOS % 1.3 % (0.0-3.0); HEMATOCRIT 38.8 % (36.0-47.0); HEMOGLOBIN 12.7 g/dl (12.0-15.5); LYMPH # 3.8 10^3/uL (1.5-5.0); LYMPH % 26.4 % (24.0-44.0); MEAN CORPUSCULAR HEMOGLOBIN 29.5 pg (27.0-33.0); MEAN CORPUSCULAR HGB CONC 32.7 g/dl (32.0-36.5); MONO # 0.8 10^3/uL (0.0-0.8); MONO % 5.4 % (2.0-8.0); NEUTROPHILS # 9.5 10^3/uL (1.5-8.5); NEUTROPHILS % 66.2 % (36.0-66.0); PLATELET COUNT, AUTOMATED 316 10^3/uL (150-450); RED BLOOD COUNT 4.31 10^6/uL (4.00-5.40); WHITE BLOOD COUNT 14.3 10^3/uL (4.0-10.0)
[2021-09-28 17:05] LABS: ALBUMIN 3.7 GM/DL (3.2-5.2); ALT/SGPT 25 U/L (12-78); BILIRUBIN,DIRECT < 0.1 MG/DL (0.0-0.2); BILIRUBIN,TOTAL 0.2 MG/DL (0.2-1.0); BLOOD UREA NITROGEN 15 MG/DL (7-18); C REACTIVE PROTEIN QUANTITATIV 0.62 MG/DL (0.00-0.30); CALCIUM LEVEL 8.6 MG/DL (8.5-10.1); CARBON DIOXIDE LEVEL 27 MEQ/L (21-32); CHLORIDE LEVEL 110 MEQ/L (98-107); GLOMERULAR FILTRATION RATE > 60.0 (>60); GLUCOSE, FASTING 76 MG/DL (70-100); POTASSIUM SERUM 3.9 MEQ/L (3.5-5.1); SODIUM LEVEL 141 MEQ/L (136-145); TOTAL PROTEIN 6.8 GM/DL (6.4-8.2)
== END ==
LOC: M LAB 15:47
PROVIDERS: ATTEND Internal Medicine
DX: M06.4 Inflammatory polyarthropathy (principal)

== ENCOUNTER 2022-02-21 14:12 | Outpatient (RCR) | payer BC | END 2022-02-22 | LOC: M PT 14:12 | PROVIDERS: ATTEND Orthopaedic Surgery | DX: M75.41 Impingement syndrome of right shoulder (principal) ==

== ENCOUNTER → 2022-03-01 | Outpatient (CLI) | payer BC | LOC: M RAD 15:43 | PROVIDERS: ATTEND Orthopaedic Surgery | DX: M75.41 Impingement syndrome of right shoulder (principal); M67.813 Other specified disorders of tendon, right shoulder ==

== ENCOUNTER → 2022-03-13 | Outpatient (CLI) | payer BC | LOC: M RAD 15:25 | PROVIDERS: ATTEND Internal Medicine Rheumatology | DX: M54.9 Dorsalgia, unspecified (principal) ==

== ENCOUNTER → 2022-05-31 | Outpatient (CLI) | payer BC ==
[2022-05-31 17:38] LABS: BASO % 0.4 % (0.0-1.0); EOS # 0.1 10^3/uL (0.0-0.5); EOS % 1.2 % (0.0-3.0); HEMATOCRIT 40.8 % (36.0-47.0); HEMOGLOBIN 13.1 g/dl (12.0-15.5); LYMPH # 3.6 10^3/uL (1.5-5.0); LYMPH % 32.3 % (24.0-44.0); MEAN CORPUSCULAR HEMOGLOBIN 29.4 pg (27.0-33.0); MEAN CORPUSCULAR HGB CONC 32.1 g/dl (32.0-36.5); MEAN CORPUSCULAR VOLUME 91.7 fl (80.0-96.0); MONO # 0.8 10^3/uL (0.0-0.8); NEUTROPHILS # 6.6 10^3/uL (1.5-8.5); NEUTROPHILS % 58.9 % (36.0-66.0); PLATELET COUNT, AUTOMATED 265 10^3/uL (150-450); RED BLOOD COUNT 4.45 10^6/uL (4.00-5.40); WHITE BLOOD COUNT 11.2 10^3/uL (4.0-10.0)
[2022-05-31 17:58] LABS: FERRITIN 33.1 NG/ML (7.3-270.7); THYROID STIMULATING HORMONE 1.183 uIU/ML (0.55-4.78)
[2022-05-31 18:00] LABS: VITAMIN B12 LEVEL 281 PG/ML (211-911)
[2022-05-31 18:02] LABS: IRON (FE) 40 UG/DL (50-170)
[2022-05-31 18:03] LABS: ALBUMIN 4.1 G/DL (3.2-5.2); ALKALINE PHOSPHATASE 70 U/L (46-116); ALT/SGPT 28 U/L (7.0-40); AST/SGOT 22 U/L (<34); BILIRUBIN,TOTAL 0.3 MG/DL (0.3-1.2); BLOOD UREA NITROGEN 17 MG/DL (9-23); CALCIUM LEVEL 9.3 MG/DL (8.5-10.1); CARBON DIOXIDE LEVEL 28 MMOL/L (20-31); CHLORIDE LEVEL 106 MMOL/L (98-107); CREATININE FOR GFR 0.81 MG/DL (0.55-1.30); GLOMERULAR FILTRATION RATE > 60.0 (>60); GLUCOSE, FASTING 91 MG/DL (60-100); PERCENT SATURATION 11.8 % (13.2-45.0); POTASSIUM SERUM 3.9 MMOL/L (3.5-5.1); SODIUM LEVEL 141 MMOL/L (136-145); TOTAL IRON BINDING CAPACITY 340 UG/DL (250-425)
[2022-05-31 18:05] LABS: FOLATE 19.75 NG/ML (>5.4)
== END ==
LOC: M PLALAB 15:11
PROVIDERS: ATTEND Nurse Practitioner Adult Health
DX: L65.9 Nonscarring hair loss, unspecified (principal)

== ENCOUNTER → 2022-09-18 | Outpatient (CLI) | payer BC ==
[~2022-09-18] MED LIST changes: +ETON68IM SC; +INFL10VL IV; +LANS30CA93 PO; +MELO15TA28 PO
== END ==
LOC: M LABSMTC 08:08
PROVIDERS: ATTEND Anesthesiology
DX: Z20.828 Contact with and (suspected) exposure to other viral communicable diseases (principal)

== ENCOUNTER → 2022-09-18 | Outpatient (CLI) | payer BC ==
[2022-09-18 10:39] LABS: BASO # 0.1 10^3/uL (0.0-0.2); BASO % 0.7 % (0.0-1.0); EOS # 0.2 10^3/uL (0.0-0.5); EOS % 1.8 % (0.0-3.0); HEMATOCRIT 42.7 % (36.0-47.0); HEMOGLOBIN 13.8 g/dl (12.0-15.5); LYMPH # 3.2 10^3/uL (1.5-5.0); LYMPH % 32.6 % (24.0-44.0); MEAN CORPUSCULAR HEMOGLOBIN 30.3 pg (27.0-33.0); MEAN CORPUSCULAR HGB CONC 32.3 g/dl (32.0-36.5); MEAN CORPUSCULAR VOLUME 93.6 fl (80.0-96.0); MONO # 0.6 10^3/uL (0.0-0.8); MONO % 6.3 % (2.0-8.0); NEUTROPHILS # 5.7 10^3/uL (1.5-8.5); NEUTROPHILS % 58.3 % (36.0-66.0); PLATELET COUNT, AUTOMATED 293 10^3/uL (150-450); RED BLOOD COUNT 4.56 10^6/uL (4.00-5.40); WHITE BLOOD COUNT 9.7 10^3/uL (4.0-10.0)
[2022-09-18 10:44] LABS: IRON (FE) 82 UG/DL (50-170)
[2022-09-18 10:45] LABS: PERCENT SATURATION 23.4 % (13.2-45.0); TOTAL IRON BINDING CAPACITY 350 UG/DL (250-425)
[2022-09-18 10:47] LABS: ALBUMIN 3.9 G/DL (3.2-5.2); ALKALINE PHOSPHATASE 78 U/L (46-116); ALT/SGPT 17 U/L (7.0-40); AST/SGOT 16 U/L (<34); BILIRUBIN,TOTAL 0.6 MG/DL (0.3-1.2); BLOOD UREA NITROGEN 10 MG/DL (9-23); CALCIUM LEVEL 9.3 MG/DL (8.5-10.1); CARBON DIOXIDE LEVEL 31 MMOL/L (20-31); CHLORIDE LEVEL 106 MMOL/L (98-107); CREATININE FOR GFR 0.77 MG/DL (0.55-1.30); FERRITIN 39.4 NG/ML (7.3-270.7); FOLATE > 24.00 NG/ML (>5.4); GLOMERULAR FILTRATION RATE > 60.0 (>60); GLUCOSE, FASTING 88 MG/DL (60-100); SODIUM LEVEL 140 MMOL/L (136-145); TOTAL 25(OH) VITAMIN D 26.8 NG/ML (20.0-100.0); TOTAL PROTEIN 6.8 G/DL (5.7-8.2); VITAMIN B12 LEVEL 403 PG/ML (211-911)
== END ==
LOC: M PLALAB 08:13
PROVIDERS: ATTEND Physician Assistant
DX: D50.9 Iron deficiency anemia, unspecified (principal); E55.9 Vitamin D deficiency, unspecified; D51.9 Vitamin B12 deficiency anemia, unspecified

== ENCOUNTER 2022-09-22 09:33 | Day surgery (SDC) | payer BC ==
[~2022-09-22] VITALS: Ht 154.9 cm; Wt 86.4 kg
[~2022-09-22 09:33] MED LIST changes: +NS 1,000 ML IV ONE
[2022-09-22] MEDS ORDERED: propofoL 500 MG/50 ML VIAL As Ordered ONE (10:36)
[2022-09-22] MEDS ORDERED: fentaNYL 100 MCG/2 ML INJECTION As Ordered ONE (10:36)
[2022-09-22] MEDS ORDERED: LIDOCAINE 2% 100MG/5ML SDV (FOR ANES.) As Ordered ONE (10:36)
[2022-09-22 11:30] VITALS: BP 141/77
== END 2022-09-22 11:36 | disposition home or self-care (01) ==
LOC: M OPP 09:33
PROVIDERS: ATTEND Internal Medicine Gastroenterology
DX: R19.4 Change in bowel habit (principal); R10.84 Generalized abdominal pain; Z79.620 Long term (current) use of immunosuppressive biologic; Z79.899 Other long term (current) drug therapy; Z88.1 Allergy status to other antibiotic agents; Z88.8 Allergy status to other drugs, medicaments and biological substances
CPT/HCPCS: 43239; 45380; 88305; J3010

== ENCOUNTER → 2023-04-14 | Outpatient (CLI) | payer BC ==
[~2023-04-14] MED LIST changes: -NS 1,000 ML IV ONE
[2023-04-14 11:50] LABS: BASO # 0.1 10^3/uL (0.0-0.2); BASO % 0.6 % (0.0-1.0); EOS # 0.1 10^3/uL (0.0-0.5); EOS % 0.7 % (0.0-3.0); HEMATOCRIT 38.4 % (36.0-47.0); HEMOGLOBIN 12.5 g/dl (12.0-15.5); LYMPH # 2.9 10^3/uL (1.5-5.0); LYMPH % 33.6 % (24.0-44.0); MEAN CORPUSCULAR HGB CONC 32.6 g/dl (32.0-36.5); MEAN CORPUSCULAR VOLUME 92.1 fl (80.0-96.0); MONO # 0.7 10^3/uL (0.0-0.8); MONO % 8.1 % (2.0-8.0); NEUTROPHILS % 56.7 % (36.0-66.0); PLATELET COUNT, AUTOMATED 261 10^3/uL (150-450); RED BLOOD COUNT 4.17 10^6/uL (4.00-5.40); WHITE BLOOD COUNT 8.7 10^3/uL (4.0-10.0)
== END ==
LOC: M LAB 11:21
PROVIDERS: ATTEND Physician Assistant
DX: E55.9 Vitamin D deficiency, unspecified (principal); D51.9 Vitamin B12 deficiency anemia, unspecified; K58.2 Mixed irritable bowel syndrome; M45.9 Ankylosing spondylitis of unspecified sites in spine

== ENCOUNTER → 2023-08-15 | Outpatient (CLI) | payer BC ==
[2023-08-15 17:56] LABS: BASO # 0.1 10^3/uL (0.0-0.2); BASO % 0.4 % (0.0-1.0); EOS # 0.2 10^3/uL (0.0-0.5); EOS % 1.9 % (0.0-3.0); HEMATOCRIT 38.9 % (36.0-47.0); HEMOGLOBIN 12.5 g/dl (12.0-15.5); LYMPH # 3.9 10^3/uL (1.5-5.0); LYMPH % 32.9 % (24.0-44.0); MEAN CORPUSCULAR HEMOGLOBIN 30.6 pg (27.0-33.0); MEAN CORPUSCULAR HGB CONC 32.1 g/dl (32.0-36.5); MEAN CORPUSCULAR VOLUME 95.3 fl (80.0-96.0); MONO % 8.2 % (2.0-8.0); NEUTROPHILS # 6.7 10^3/uL (1.5-8.5); NEUTROPHILS % 56.3 % (36.0-66.0); PLATELET COUNT, AUTOMATED 306 10^3/uL (150-450); RED BLOOD COUNT 4.08 10^6/uL (4.00-5.40); WHITE BLOOD COUNT 11.9 10^3/uL (4.0-10.0)
[2023-08-15 18:17] LABS: ERYTHROCYTE SEDIMENTATION RATE 7 mm/hr (0-20)
[2023-08-15 18:25] LABS: C REACTIVE PROTEIN QUANTITATIV < 0.40 MG/DL (<1.0)
[2023-08-15 18:27] LABS: ALT/SGPT 27 U/L (7.0-40); AST/SGOT 18 U/L (<34); BLOOD UREA NITROGEN 11 MG/DL (9-23); CREATININE FOR GFR 0.72 MG/DL (0.55-1.30); GLOMERULAR FILTRATION RATE > 60.0 (>60)
== END ==
LOC: M PLALAB 15:11
PROVIDERS: ATTEND Nurse Practitioner Family
DX: M45.0 Ankylosing spondylitis of multiple sites in spine (principal); Z79.899 Other long term (current) drug therapy

== ENCOUNTER → 2023-08-17 | Outpatient (CLI) | payer BC ==
[~2023-08-17] MED LIST changes: +TRIAMCINOLONE ACETONIDE SUSP 40MG/ML 1ML VIAL As Ordered ONE; +diazePAM 5MG TABLET As Ordered ONE; +oxyCODONE 5MG TAB As Ordered ONE
== END ==
LOC: M PAIN 13:30
PROVIDERS: ATTEND Anesthesiology
DX: M79.18 Myalgia, other site (principal); F41.9 Anxiety disorder, unspecified; F32.A Depression, unspecified; K44.9 Diaphragmatic hernia without obstruction or gangrene; Z79.891 Long term (current) use of opiate analgesic; Z79.899 Other long term (current) drug therapy; Z88.1 Allergy status to other antibiotic agents; Z91.030 Bee allergy status
CPT/HCPCS: 20552; J0665; J3301

== ENCOUNTER → 2023-11-07 | Outpatient (CLI) | payer BC ==
[~2023-11-07] MED LIST changes: -TRIAMCINOLONE ACETONIDE SUSP 40MG/ML 1ML VIAL As Ordered ONE; -diazePAM 5MG TABLET As Ordered ONE; -oxyCODONE 5MG TAB As Ordered ONE
[2023-11-07 18:08] LABS: BASO # 0.1 10^3/uL (0.0-0.2); BASO % 0.6 % (0.0-1.0); EOS # 0.2 10^3/uL (0.0-0.5); EOS % 2.2 % (0.0-3.0); HEMATOCRIT 36.8 % (36.0-47.0); HEMOGLOBIN 12.2 g/dl (12.0-15.5); LYMPH # 3.5 10^3/uL (1.5-5.0); LYMPH % 38.5 % (24.0-44.0); MEAN CORPUSCULAR HEMOGLOBIN 31.4 pg (27.0-33.0); MEAN CORPUSCULAR HGB CONC 33.2 g/dl (32.0-36.5); MEAN CORPUSCULAR VOLUME 94.6 fl (80.0-96.0); MONO # 0.7 10^3/uL (0.0-0.8); MONO % 8.2 % (2.0-8.0); NEUTROPHILS # 4.5 10^3/uL (1.5-8.5); NEUTROPHILS % 50.3 % (36.0-66.0); PLATELET COUNT, AUTOMATED 325 10^3/uL (150-450); RED BLOOD COUNT 3.89 10^6/uL (4.00-5.40)
[2023-11-07 18:40] LABS: C REACTIVE PROTEIN QUANTITATIV < 0.40 MG/DL (<1.0)
[2023-11-07 18:42] LABS: ALBUMIN 3.9 G/DL (3.2-5.2); ALT/SGPT 54 U/L (7.0-40); AST/SGOT 27 U/L (<34); BLOOD UREA NITROGEN 12 MG/DL (9-23); CREATININE FOR GFR 0.76 MG/DL (0.55-1.30); GLOMERULAR FILTRATION RATE > 60.0 (>60)
[2023-11-07 19:14] LABS: ERYTHROCYTE SEDIMENTATION RATE 8 mm/hr (0-20)
== END ==
LOC: M PLALAB 15:20
PROVIDERS: ATTEND Physician Assistant Medical
DX: M45.0 Ankylosing spondylitis of multiple sites in spine (principal); Z79.899 Other long term (current) drug therapy

== ENCOUNTER → 2024-01-23 | Outpatient (CLI) | payer BC ==
[2024-01-23 17:34] LABS: BASO # 0.1 10^3/uL (0.0-0.2); BASO % 0.4 % (0.0-1.0); EOS # 0.2 10^3/uL (0.0-0.5); EOS % 1.1 % (0.0-3.0); HEMATOCRIT 36.3 % (36.0-47.0); HEMOGLOBIN 11.7 g/dl (12.0-15.5); LYMPH # 2.8 10^3/uL (1.5-5.0); LYMPH % 20.6 % (24.0-44.0); MEAN CORPUSCULAR HEMOGLOBIN 30.5 pg (27.0-33.0); MEAN CORPUSCULAR HGB CONC 32.2 g/dl (32.0-36.5); MEAN CORPUSCULAR VOLUME 94.8 fl (80.0-96.0); MONO # 0.9 10^3/uL (0.0-0.8); NEUTROPHILS # 9.5 10^3/uL (1.5-8.5); NEUTROPHILS % 70.5 % (36.0-66.0); PLATELET COUNT, AUTOMATED 328 10^3/uL (150-450); RED BLOOD COUNT 3.83 10^6/uL (4.00-5.40); WHITE BLOOD COUNT 13.4 10^3/uL (4.0-10.0)
[2024-01-23 17:47] LABS: ERYTHROCYTE SEDIMENTATION RATE 12 mm/hr (0-20)
[2024-01-23 18:08] LABS: ALT/SGPT 21 U/L (7.0-40); AST/SGOT 16 U/L (<34); BLOOD UREA NITROGEN 15 MG/DL (9-23); CREATININE FOR GFR 0.84 MG/DL (0.55-1.30); GLOMERULAR FILTRATION RATE > 60.0 (>60)
== END ==
LOC: M PLALAB 15:11
PROVIDERS: ATTEND Nurse Practitioner Family
DX: Z79.899 Other long term (current) drug therapy (principal)

== ENCOUNTER → 2024-02-19 | Outpatient (CLI) | payer BC ==
[2024-02-19 19:23] LABS: BASO # 0.1 10^3/uL (0.0-0.2); BASO % 0.5 % (0.0-1.0); EOS # 0.1 10^3/uL (0.0-0.5); EOS % 0.8 % (0.0-3.0); HEMATOCRIT 37.8 % (36.0-47.0); LYMPH # 3.1 10^3/uL (1.5-5.0); LYMPH % 26.1 % (24.0-44.0); MEAN CORPUSCULAR HEMOGLOBIN 30.2 pg (27.0-33.0); MEAN CORPUSCULAR HGB CONC 31.7 g/dl (32.0-36.5); MEAN CORPUSCULAR VOLUME 95.2 fl (80.0-96.0); MONO % 8.4 % (2.0-8.0); NEUTROPHILS # 7.6 10^3/uL (1.5-8.5); NEUTROPHILS % 63.9 % (36.0-66.0); PLATELET COUNT, AUTOMATED 332 10^3/uL (150-450); RED BLOOD COUNT 3.97 10^6/uL (4.00-5.40); WHITE BLOOD COUNT 11.9 10^3/uL (4.0-10.0)
[2024-02-19 19:48] LABS: MONO REFLEX EBV COMP NEGATIVE (NEGATIVE)
[2024-02-19 20:04] LABS: HEPATITIS B SURFACE ANTIGEN NEGATIVE (NEGATIVE)
[2024-02-19 20:22] LABS: ERYTHROCYTE SEDIMENTATION RATE 16 mm/hr (0-20)
[2024-02-19 20:23] LABS: HEPATITIS C VIRUS ABY INDEX < 0.02 INDEX (<0.8)
[2024-02-19 20:24] LABS: HEPATITIS B CORE ANTIBODY IGM NEGATIVE (NEGATIVE)
== END ==
LOC: M PLALAB 15:24
PROVIDERS: ATTEND Physician Assistant
DX: D72.829 Elevated white blood cell count, unspecified (principal)

== ENCOUNTER → 2024-05-19 | Outpatient (CLI) | payer BC ==
[~2024-05-19] MED LIST changes: +ADDE15CA3 PO; +BUPR-597 PO; +CELE0.09 PO; +CYCL5TAB4 PO; +PROP40TA62 PO; +SULF500T41 PO; +TRAM50TA2 PO; +XANA0.5T PO
== END ==
LOC: M PAIN 14:45
PROVIDERS: ATTEND Nurse Practitioner Family
DX: M54.50 Low back pain, unspecified (principal); M46.1 Sacroiliitis, not elsewhere classified; G89.29 Other chronic pain; F41.9 Anxiety disorder, unspecified; F32.A Depression, unspecified; K58.9 Irritable bowel syndrome, unspecified; M79.7 Fibromyalgia; Z79.891 Long term (current) use of opiate analgesic; Z79.899 Other long term (current) drug therapy; Z88.1 Allergy status to other antibiotic agents; Z91.030 Bee allergy status

== ENCOUNTER → 2024-05-21 | Outpatient (CLI) | payer BC | LOC: M PLAIMG 15:17 | PROVIDERS: ATTEND Nurse Practitioner Family | DX: M46.1 Sacroiliitis, not elsewhere classified (principal) ==

== ENCOUNTER → 2024-06-24 | Outpatient (CLI) | payer BC | LOC: M PLAIMG 10:27 | PROVIDERS: ATTEND Nurse Practitioner Family | DX: M46.1 Sacroiliitis, not elsewhere classified (principal); M54.50 Low back pain, unspecified ==

== ENCOUNTER → 2024-07-07 | Outpatient (CLI) | payer BC | LOC: M PAIN 15:00 | PROVIDERS: ATTEND Nurse Practitioner Family | DX: M46.1 Sacroiliitis, not elsewhere classified (principal); G89.29 Other chronic pain; F41.9 Anxiety disorder, unspecified; F32.A Depression, unspecified; M79.7 Fibromyalgia; Z79.899 Other long term (current) drug therapy; Z88.1 Allergy status to other antibiotic agents; Z91.030 Bee allergy status ==

== ENCOUNTER → 2024-07-08 | Outpatient (REF) | payer BC | LOC: M SFHCWAGY 17:17 | PROVIDERS: ATTEND Nurse Practitioner Family | DX: Z12.4 Encounter for screening for malignant neoplasm of cervix (principal); R87.610 Atypical squamous cells of undetermined significance on cytologic smear of cervix (ASC-US) | CPT/HCPCS: 87624; G0123 ==

== ENCOUNTER → 2024-07-25 | Outpatient (REF) | payer BC ==
[2024-07-25 16:00] LABS: BASO # 0.1 10^3/uL (0.0-0.2); BASO % 0.6 % (0.0-1.0); EOS # 0.1 10^3/uL (0.0-0.5); EOS % 0.5 % (0.0-3.0); HEMATOCRIT 37.3 % (36.0-47.0); HEMOGLOBIN 11.9 g/dl (12.0-15.5); LYMPH # 3.6 10^3/uL (1.5-5.0); MEAN CORPUSCULAR HEMOGLOBIN 29.7 pg (27.0-33.0); MEAN CORPUSCULAR HGB CONC 31.9 g/dl (32.0-36.5); MONO # 0.9 10^3/uL (0.0-0.8); MONO % 7.9 % (2.0-8.0); NEUTROPHILS # 6.6 10^3/uL (1.5-8.5); NEUTROPHILS % 58.3 % (36.0-66.0); PLATELET COUNT, AUTOMATED 352 10^3/uL (150-450); RED BLOOD COUNT 4.01 10^6/uL (4.00-5.40); WHITE BLOOD COUNT 11.3 10^3/uL (4.0-10.0)
[2024-07-25 16:13] LABS: ERYTHROCYTE SEDIMENTATION RATE 23 mm/hr (0-20)
[2024-07-25 16:28] LABS: ALT/SGPT 33 U/L (7.0-40); AST/SGOT 26 U/L (<34); BLOOD UREA NITROGEN 11 MG/DL (9-23); C REACTIVE PROTEIN QUANTITATIV 1.08 MG/DL (<1.0); CREATININE FOR GFR 0.77 MG/DL (0.55-1.30); GLOMERULAR FILTRATION RATE > 60.0 (>60)
== END ==
LOC: M LAB REF 14:19
PROVIDERS: ATTEND Nurse Practitioner Family
DX: Z79.899 Other long term (current) drug therapy (principal)

== ENCOUNTER → 2024-08-21 | Outpatient (REF) | payer BC ==
[2024-08-21 17:13] LABS: MAGNESIUM LEVEL 2.2 MG/DL (1.8-2.4)
[2024-08-21 17:15] LABS: PERCENT SATURATION 10.8 % (13.2-45.0)
[2024-08-21 17:17] LABS: FERRITIN 38.7 NG/ML (7.3-270.7); FREE T4 1.14 NG/DL (0.89-1.76); THYROID STIMULATING HORMONE 1.914 uIU/ML (0.55-4.78)
[2024-08-21 17:18] LABS: TOTAL 25(OH) VITAMIN D 61.6 NG/ML (20.0-100.0)
== END ==
LOC: M LAB REF 12:59
PROVIDERS: ATTEND Family Medicine
DX: E55.9 Vitamin D deficiency, unspecified (principal); D51.9 Vitamin B12 deficiency anemia, unspecified; R53.83 Other fatigue

== ENCOUNTER → 2024-09-25 | Outpatient (CLI) | payer BC | LOC: M SOG 07:17 | PROVIDERS: ATTEND Physician Assistant | DX: M25.511 Pain in right shoulder (principal); M25.531 Pain in right wrist ==

== ENCOUNTER → 2024-10-03 | Outpatient (CLI) | payer BC ==
[~2024-10-03] VITALS: Ht 157.5 cm; Wt 105.0 kg
[~2024-10-03] MED LIST changes: +ALBUTEROL SULFATE 2.5MG/0.5ML INH CONCENTRATE NEB SOLN INH PRN; +EPINEPHrine INJ 1 MG/ML 1ML AMP IM PRN; +diphenhydrAMINE 50MG/ML VIAL IV PRN; +methylPREDNISolone 125MG 2ML VIAL IV PRN
[2024-10-03 15:11] VITALS: BP 144/84; O2SAT 100
[2024-10-03] MEDS: FERRIC CARBOXYMALTOSE 750 MG (VIAL MATE) IN 100ML NS IV ONE (15:15)
[2024-10-03 16:10] VITALS: BP 169/80; O2SAT 96
== END ==
LOC: M INFU 14:57
PROVIDERS: ATTEND Family Medicine
DX: D50.9 Iron deficiency anemia, unspecified (principal); Z88.1 Allergy status to other antibiotic agents
CPT/HCPCS: 96365; J1439

== ENCOUNTER 2024-10-10 14:25 | Outpatient (CLI) | payer BC ==
[~2024-10-10] VITALS: Ht 154.9 cm; Wt 104.0 kg
[2024-10-10 14:25] VITALS: BP 145/84; O2SAT 95
[~2024-10-10 14:25] MED LIST changes: -BUPR-597 PO; +BUPR-766 PO
[2024-10-10] MEDS: FERRIC CARBOXYMALTOSE 750 MG (VIAL MATE) IN 100ML NS IV ONE (14:32)
[2024-10-10 15:15] VITALS: BP 134/75; O2SAT 95
== END 2024-10-10 15:15 | disposition home or self-care (01) ==
LOC: M INFU 14:25
PROVIDERS: ATTEND Family Medicine
DX: D50.9 Iron deficiency anemia, unspecified (principal); Z88.1 Allergy status to other antibiotic agents
CPT/HCPCS: 96365; J1439

== ENCOUNTER → 2024-10-24 | Outpatient (CLI) | payer BC ==
[~2024-10-24] MED LIST changes: -ALBUTEROL SULFATE 2.5MG/0.5ML INH CONCENTRATE NEB SOLN INH PRN; -EPINEPHrine INJ 1 MG/ML 1ML AMP IM PRN; -diphenhydrAMINE 50MG/ML VIAL IV PRN; -methylPREDNISolone 125MG 2ML VIAL IV PRN
== END ==
LOC: M PLAIMG 10-21 15:51
PROVIDERS: ATTEND Neuromusculoskeletal Medicine, Sports Medicine
DX: M54.12 Radiculopathy, cervical region (principal)

== ENCOUNTER → 2025-01-31 | Outpatient (CLI) | payer BC | LOC: M RAD 10:45 | PROVIDERS: ATTEND Neurological Surgery | DX: M47.12 Other spondylosis with myelopathy, cervical region (principal); M48.02 Spinal stenosis, cervical region; E04.1 Nontoxic single thyroid nodule ==

== ENCOUNTER → 2025-02-17 | Outpatient (CLI) | payer BC ==
[~2025-02-17] MED LIST changes: +ERGO125013 PO
== END ==
LOC: M PLAIMG 07:01
PROVIDERS: ATTEND Neurological Surgery
DX: M48.02 Spinal stenosis, cervical region (principal); H53.2 Diplopia

== ENCOUNTER → 2025-02-18 | Outpatient (CLI) | payer BC | LOC: M WHC 15:12 | PROVIDERS: ATTEND Family Medicine | DX: E04.2 Nontoxic multinodular goiter (principal) ==

== ENCOUNTER → 2025-02-27 | Outpatient (CLI) | payer BC ==
[2025-02-27 17:48] LABS: BASO # 0.1 10^3/uL (0.0-0.2); BASO % 0.6 % (0.0-1.0); EOS # 0.4 10^3/uL (0.0-0.5); EOS % 3.3 % (0.0-3.0); LYMPH # 3.1 10^3/uL (1.5-5.0); LYMPH % 28.4 % (24.0-44.0); MONO # 1.0 10^3/uL (0.0-0.8); MONO % 9.0 % (2.0-8.0); NEUTROPHILS # 6.4 10^3/uL (1.5-8.5); NEUTROPHILS % 58.2 % (36.0-66.0); PLATELET COUNT, AUTOMATED 264 10^3/uL (150-450)
[2025-02-27 17:55] LABS: ERYTHROCYTE SEDIMENTATION RATE 5 mm/hr (0-20)
[2025-02-27 18:18] LABS: ALT/SGPT 36 U/L (7.0-40); AST/SGOT 27 U/L (<34); C REACTIVE PROTEIN QUANTITATIV < 0.50 MG/DL (<1.0); CREATININE FOR GFR 0.76 MG/DL (0.55-1.30); GLOMERULAR FILTRATION RATE > 90.0 (>60)
== END ==
LOC: M PLALAB 15:31
PROVIDERS: ATTEND Nurse Practitioner Family
DX: Z51.81 Encounter for therapeutic drug level monitoring (principal); Z79.899 Other long term (current) drug therapy

== ENCOUNTER → 2025-04-08 | Outpatient (REF) ==
[2025-04-08 11:37] LABS: BASO # 0.1 10^3/uL (0.0-0.2); BASO % 0.5 % (0.0-1.0); EOS # 0.2 10^3/uL (0.0-0.5); EOS % 1.8 % (0.0-3.0); LYMPH # 3.4 10^3/uL (1.5-5.0); LYMPH % 30.3 % (24.0-44.0); MONO # 0.8 10^3/uL (0.0-0.8); MONO % 7.6 % (2.0-8.0); NEUTROPHILS # 6.6 10^3/uL (1.5-8.5); NEUTROPHILS % 59.3 % (36.0-66.0); PLATELET COUNT, AUTOMATED 257 10^3/uL (150-450)
[2025-04-08 11:38] LABS: APPEARANCE, URINE HAZY (CLEAR); BACTERIA, URINE AUTO NEGATIVE (NEGATIVE); BILIRUBIN, URINE AUTO NEGATIVE (NEGATIVE); BLOOD, URINE BLOOD NEGATIVE (NEGATIVE); GLUCOSE, URINE (UA) AUTO NEGATIVE (NEGATIVE); KETONE, URINE AUTO NEGATIVE (NEGATIVE); LEUKOCYTE ESTERASE, URINE AUTO NEGATIVE (NEGATIVE); MUCUS, URINE LARGE (NEGATIVE); NITRITE, URINE AUTO NEGATIVE (NEGATIVE); PROTEIN, URINE AUTO NEGATIVE (NEGATIVE); RBC, URINE AUTO 15 /HPF (0-3); SPECIFIC GRAVITY URINE AUTO 1.023 (1.002-1.035); SQUAMOUS EPITHELIAL CELL UR AU 1 /HPF (0-6); UROBILINOGEN, URINE AUTO 0.2 mg/dL (0.0-2.0); WBC, URINE AUTO 2 /HPF (0-3)
[2025-04-08 12:11] LABS: ALT/SGPT 25 U/L (7.0-40); AST/SGOT 20 U/L (<34); CALCIUM LEVEL 9.0 MG/DL (8.5-10.1); CARBON DIOXIDE LEVEL 29 MMOL/L (20-31); CHLORIDE LEVEL 105 MMOL/L (98-107); CREATININE FOR GFR 0.71 MG/DL (0.55-1.30); GLOMERULAR FILTRATION RATE > 90.0 (>60); POTASSIUM SERUM 3.2 MMOL/L (3.5-5.1); SODIUM LEVEL 144 MMOL/L (136-145)
== END ==
LOC: M EMP 11:08
PROVIDERS: ATTEND Family Medicine
DX: Z02.89 Encounter for other administrative examinations (principal)

== ENCOUNTER → 2025-04-15 | Outpatient (CLI) | payer BC ==
[2025-04-15 17:19] LABS: BASO # 0.1 10^3/uL (0.0-0.2); BASO % 0.5 % (0.0-1.0); EOS # 0.2 10^3/uL (0.0-0.5); EOS % 1.8 % (0.0-3.0); LYMPH # 3.1 10^3/uL (1.5-5.0); LYMPH % 25.2 % (24.0-44.0); MONO # 1.1 10^3/uL (0.0-0.8); MONO % 8.8 % (2.0-8.0); NEUTROPHILS # 7.9 10^3/uL (1.5-8.5); NEUTROPHILS % 63.4 % (36.0-66.0); PLATELET COUNT, AUTOMATED 277 10^3/uL (150-450)
[2025-04-15 17:20] LABS: IRON (FE) 55.0 UG/DL (50-170); PERCENT SATURATION 18.9 % (13.2-45.0)
[2025-04-15 17:22] LABS: VITAMIN B12 LEVEL 349.0 PG/ML (211-911)
== END ==
LOC: M PLALAB 15:28
PROVIDERS: ATTEND Family Medicine
DX: E61.1 Iron deficiency (principal); M45.9 Ankylosing spondylitis of unspecified sites in spine

== ENCOUNTER → 2025-06-01 | Outpatient (CLI) | payer BC ==
[2025-06-01 17:06] LABS: ALT/SGPT 39 U/L (7.0-40); AST/SGOT 25 U/L (<34); C REACTIVE PROTEIN QUANTITATIV < 0.50 MG/DL (<1.0); CREATININE FOR GFR 0.78 MG/DL (0.55-1.30); GLOMERULAR FILTRATION RATE > 90.0 (>60)
[2025-06-01 17:10] LABS: BASO # 0.1 10^3/uL (0.0-0.2); BASO % 0.7 % (0.0-1.0); EOS # 0.4 10^3/uL (0.0-0.5); EOS % 3.5 % (0.0-3.0); LYMPH # 4.2 10^3/uL (1.5-5.0); LYMPH % 37.1 % (24.0-44.0); MONO # 0.9 10^3/uL (0.0-0.8); MONO % 8.0 % (2.0-8.0); NEUTROPHILS # 5.7 10^3/uL (1.5-8.5); NEUTROPHILS % 50.4 % (36.0-66.0); PLATELET COUNT, AUTOMATED 262 10^3/uL (150-450)
== END ==
LOC: M PLALAB 15:20
PROVIDERS: ATTEND Nurse Practitioner Family
DX: M46.99 Unspecified inflammatory spondylopathy, multiple sites in spine (principal); M45.0 Ankylosing spondylitis of multiple sites in spine; M25.50 Pain in unspecified joint; D72.829 Elevated white blood cell count, unspecified; D64.9 Anemia, unspecified; Z79.899 Other long term (current) drug therapy